=== PATIENT | female | born 1985 | race Two or more races ===

== ENCOUNTER 2022-07-22 13:01 | Emergency (ER) | payer SELFPAY ==
[2022-07-22 13:15] VITALS: BP 128/82; PULSE 94; RESP 20; TEMP 37; O2SAT 100; BMI 25.4
[2022-07-22 13:32] LABS: UTC Influenza A Antigen Negative (Negative); UTC Influenza B Antigen Negative (Negative)
--- NOTE | 2022-07-22 13:36 | EXP.UTC ---
Discharge Plan Disposition Patient Disposition: Home, Self-Care Condition: Good Prescriptions Prescriptions: New prednisone [prednisone] 20 mg tablet 20 mg PO BID 5 Days Qty: 10 0RF amoxicillin-pot clavulanate 875-125 mg Tablet 1 tab PO Q12H Qty: 20 0RF dextromethorphan-guaifenesin [Mucinex DM] 60-1,200 mg tablet extended release 12 hr 1 tab PO BID Qty: 20 0RF Referrals Follow up/Referrals: Provider,Referral, MD [Primary Care Provider] - See instructions Activity Restrictions/Add. Instructions Additional Instructions/Restrictions: Take all medication as prescribed until gone Rest, increase fluids COVID19 test pending Clinical Impressions Clinical Impression: Bronchitis Instructions Patient Instructions: DI for Acute Bronchitis Discharge ED Provider: Negra Tamayo [facility] General Stated complaint: Cough fever Mode of Arrival: Ambulatory Source of Information: Patient Limitations: No Limitations Time Seen by Provider: 07/22/22 13:36 Description of Symptoms (Recalled from Triage Doc. by RN): cough, congestion, fever, and body ache HEENT Symptoms (Recalled from RN notes): Yes Resp Symptoms (Recalled from RN notes): No Skin Symptoms (Recalled from RN notes): No MS Symptoms (Recalled from RN notes): No Functional Status (Recalled from RN notes): n/a History of Present Illness Provider Complaint: Cough, congestion, body aches, fever, tightness in chest X 2 days. Denies ear pain. Mild sinus pain. Mild sore throat. No vomiting or diarrhea. Patient is . Onset (ago): day(s) (2) Location: chest Relieving factors: none Exacerbating factors: none Associated symptoms: denies other symptoms Treatments prior to arrival: none Related Data Previous Rx's Medication Instructions Recorded amoxicillin 875 mg-potassium 1 tab PO Q12H #20 tabs 07/22/22 clavulanate 125 mg tablet dextromethorphan-guaifenesin ER 60 1 tab PO BID #20 tabs 07/22/22 mg-1,200 mg tab,extend release,12hr (Mucinex DM) prednisone 20 mg tablet 20 mg PO BID 5 days #10 tabs 07/22/22 Allergies Allergy/AdvReac Type Severity Reaction Status Date / Time No Known Allergies Allergy Verified 07/22/22 13:24 Worker's Comp Is this a Worker's Comp case?: No PFSH PFSH Disclaimer: The information contained in this section may have been updated after the patient was seen, as this information can be updated by other users. Social History Smoking Status: Never smoker alcohol intake: never current occupational status: unemployed Travel in the last 8 weeks: None ROS Obtained: Yes All systems reviewed & no additional complaints except as documented Constitutional Constitutional: Reports body ache, Reports chills, Reports fever(s) and Reports malaise ENT Ears, Nose, Mouth, and Throat: Reports sinus pain Respiratory Respiratory: Reports chest congestion and Reports cough Physical Exam General General appearance: alert and in no apparent distress Head Head exam: atraumatic, normocephalic and normal inspection Eye Eye exam: Present normal appearance, PERRL and EOMI ENT ENT exam: Present normal exam, normal oropharynx, mucous membranes moist, TM's normal bilaterally and normal external ear exam Neck Neck exam: Present normal inspection, full ROM and trachea midline; Absent meningismus or lymphadenopathy Chest Chest inspection: Present normal inspection and symmetric chest wall rise; Absent tenderness Respiratory Respiratory exam: Present wheezes; Absent respiratory distress Cardiovascular Cardiovascular exam: Present regular rate and normal rhythm; Absent JVD Abdominal Exam Abdominal exam: Present soft and normal bowel sounds; Absent distention, tenderness or guarding Extremities Exam Extremities exam: Present normal inspection, full ROM and normal capillary refill; Absent calf tenderness Back Exam Back exam: Present normal inspection; Absent tenderness Neurological Exam Neurological exam: P
[2022-07-22 14:02] VITALS: BP 128/82; PULSE 94; RESP 20; TEMP 37; O2SAT 100
== END 2022-07-22 14:02 | disposition home or self-care (01) ==
PROVIDERS: Emergency Provider Physician Assistant
DX: U07.1 COVID-19 (principal); R05.9 Cough, unspecified; R50.9 Fever, unspecified; J40 Bronchitis, not specified as acute or chronic
CPT/HCPCS: 87804; 99212; 99213; C9803; G0463; U0003; U0005

== ENCOUNTER 2023-07-13 16:54 | Emergency (ER) | payer SELFPAY ==
--- NOTE | 2023-07-13 17:33 | ED_ITS ---
Discharge Plan Disposition Patient Disposition: Home, Self-Care Condition: Good Prescriptions Prescriptions: New azithromycin [Zithromax] 250 mg tablet 250 mg PO UD DOSE PK Qty: 6 0RF Rx Instructions: Take two (2) tablets today, then one (1) tablet days #2 thru #5 methylprednisolone 4 mg Tablets,Dose Pack 4 mg PO DIRECTED 6 Days Qty: 21 0RF Rx Instructions: Take 1 pack as directed for 6 days No Action prednisone [prednisone] 20 mg tablet 20 mg PO BID 5 Days Qty: 10 0RF amoxicillin-pot clavulanate 875-125 mg Tablet 1 tab PO Q12H Qty: 20 0RF dextromethorphan-guaifenesin [Mucinex DM] 60-1,200 mg tablet extended release 12 hr 1 tab PO BID Qty: 20 0RF Referrals Follow up/Referrals: Provider,Referral, MD [Primary Care Provider] - See instructions Activity Restrictions/Add. Instructions Additional Instructions/Restrictions: Drink plenty of fluids. Take tylenol or ibuprofen for pain or fever. Take the medications as directed. Follow up with your regular doctor. GO TO THE ER FOR ANY WORSENING SYMPTOMS Clinical Impressions Clinical Impression: Sinusitis Instructions Patient Instructions: Sinusitis, DI for Sinusitis Discharge ED Provider: Avila Albarran [facility] [place] General Stated complaint: runny nose,pain in head Time Seen by Provider: 07/13/23 17:33 History of Present Illness Provider Complaint: She states that for the past 10 days she has had sinus congestion, sore throat and a cough. Related Data Previous Rx's Medication Instructions Recorded amoxicillin 875 mg-potassium 1 tab PO Q12H #20 tabs 07/22/22 clavulanate 125 mg tablet dextromethorphan-guaifenesin ER 60 1 tab PO BID #20 tabs 07/22/22 mg-1,200 mg tab,extend release,12hr (Mucinex DM) prednisone 20 mg tablet 20 mg PO BID 5 days #10 tabs 07/22/22 azithromycin 250 mg tablet 250 mg PO UD DOSE PK #6 tabs 07/13/23 (Zithromax) methylprednisolone 4 mg tablets in 4 mg PO DIRECTED 6 days #21 tabs 07/13/23 a dose pack Allergies Allergy/AdvReac Type Severity Reaction Status Date / Time No Known Allergies Allergy Verified 07/22/22 13:24 [facility] Disclaimer: The information contained in this section may have been updated after the patient was seen, as this information can be updated by other users. Social History (Updated 07/22/22 @ 13:45 by MINA Rosen) Smoking Status: Never smoker alcohol intake: never current occupational status: unemployed Travel in the last 8 weeks: None ROS Obtained: Yes All systems reviewed & no additional complaints except as documented Constitutional Constitutional: Reports poor appetite Eyes Eyes: Reports system reviewed and no additional complaints, except as documented ENT Ears, Nose, Mouth, and Throat: Reports as per HPI Cardiovascular Cardiovascular: Reports system reviewed and no additional complaints, except as documented and Denies chest pain Respiratory Respiratory: Denies shortness of breath, Denies chest congestion, Reports cough, Denies stridor and Denies wheezing Gastrointestinal Gastrointestingal: Reports system reviewed and no additional complaints, except as documented; Denies abdominal pain, diarrhea or vomiting Musculoskeletal Musculoskeletal: Reports system reviewed and no additional complaints, except as documented and Denies arthralgias Integumentary/Breasts Skin/Breast: Reports system reviewed and no additional complaints, except as documented and Denies rash Neurologic Neurologic: Denies paresthesias Allergic/Immunologic Allergic/Immunologic: Denies wheezing Physical Exam General General appearance: alert and in no apparent distress Eye Eye exam: Present normal appearance, PERRL and EOMI ENT ENT exam: Present mucous membranes moist and normal external ear exam Expanded ENT Exam External ear exam: Present normal external inspection TM/Canal exam: Bilateral TM: erythema and bulging Nose exam: Absent sinus tenderness Nasal speculum exam: Bilateral: normal Mouth exam: Present normal external inspection; Absent drooling Teeth exam: Present normal inspection Throat exam: Present tonsillar erythema and tonsillomegaly Neck Neck exam: Present normal inspection, full ROM and trachea midline; Absent tenderness, lymphadenopathy or thyromegaly Chest Chest inspection: Present normal inspection and symmetric chest wall rise; Absent tenderness or rash Respiratory Respiratory exam: Present normal lung sounds bilaterally; Absent respiratory distress, wheezes, stridor or accessory muscle use Cardiovascular Cardiovascular exam: Present regular rate, normal rhythm and normal heart sounds Abdominal Exam Abdominal exam: Present soft; Absent distention, tenderness, guarding, rebound or rigidity Extremities Exam Extremities exam: Present normal inspection, full ROM and normal capillary refill; Absent tenderness or calf tenderness Back Exam Back exam: Present normal inspection and full ROM; Absent tenderness Neurological Exam Neurological exam: Present alert and oriented X3 Psychiatric Psychiatric exam: Present normal affect and normal mood Skin Skin exam: Present warm, dry, intact and normal color Lymphatic Lymphatic Findings: no adenopathy Medical Decision Making Medical Records Medical records reviewed: No I reviewed the patient's medical records. Timbo Inquiry Pt receiving controlled substance: No
[2023-07-13 17:43] LABS: UTC Influenza A Antigen Negative (Negative)
[2023-07-13 17:45] VITALS: BP 129/78; PULSE 81; RESP 18; TEMP 36.8; O2SAT 98; BMI 23.8
[2023-07-13 17:45] LABS: UTC Influenza B Antigen Negative (Negative)
[2023-07-13 19:05] VITALS: BP 129/78; PULSE 81; RESP 18; TEMP 36.8; O2SAT 98
== END 2023-07-13 19:05 | disposition home or self-care (01) ==
PROVIDERS: Emergency Provider Nurse Practitioner Family
DX: J01.90 Acute sinusitis, unspecified (principal); R51.9 Headache, unspecified; R05.9 Cough, unspecified; R09.81 Nasal congestion; R07.0 Pain in throat
CPT/HCPCS: 87804; 99212; 99214; G0463

== ENCOUNTER 2024-06-30 07:05 | Emergency (ER) | payer SELFPAY ==
[2024-06-30 07:07] VITALS: BP 140/99; PULSE 78; RESP 16; TEMP 36.6; O2SAT 99; BMI 26.7
[2024-06-30 07:15] VITALS: BP 135/95; PULSE 75; O2SAT 98
--- NOTE | 2024-06-30 07:18 | XR_ITS ---
PROCEDURE INFORMATION: Exam: XR Chest Exam date and time: 06/30/2024 7:16 AM Age: 38 years old Clinical indication: Cough TECHNIQUE: Imaging protocol: Radiologic exam of the chest. Views: 2 views. COMPARISON: No relevant prior studies available. FINDINGS: Lungs: Unremarkable. No consolidation. Pleural spaces: Unremarkable. No pleural effusion. No pneumothorax. Heart/Mediastinum: Unremarkable. No cardiomegaly. Bones/joints: Unremarkable. IMPRESSION: No acute findings.
--- NOTE | 2024-06-30 07:20 | HMH.EDGENADL ---
Discharge Plan Disposition Patient Disposition: Home, Self-Care Prescriptions Prescriptions: New doxycycline hyclate 100 mg capsule 100 mg PO BID 7 Days Qty: 14 0RF [id number] [Bromfed DM] 2-30-10 mg/5 mL syrup 5 ml PO Q6H PRN (Reason: cold symptoms) Qty: 118 0RF No Action azithromycin [Zithromax] 250 mg tablet 250 mg PO UD DOSE PK Qty: 6 0RF Rx Instructions: Take two (2) tablets today, then one (1) tablet days #2 thru #5 methylprednisolone 4 mg Tablets,Dose Pack 4 mg PO DIRECTED 6 Days Qty: 21 0RF Rx Instructions: Take 1 pack as directed for 6 days Referrals Follow up/Referrals: Provider,Referral, MD [Primary Care Provider] - See instructions Activity Restrictions/Add. Instructions Additional Instructions/Restrictions: At this time it was felt you are safe to be discharged home. If new or worsening symptoms please do not hesitate to return the emergency department. Your symptoms may last 1-2 more weeks but hopefully will will be over the next few days. Your flu and COVID swab is pending at time of discharge, it is positive I will have nursing contact you however on her chest x-ray it looks like you have an atypical pneumonia which we are going to treat with antibiotics regardless. Please take your medications as prescribed. Clinical Impressions Clinical Impression: Atypical pneumonia Print Language Print Language: Mohawk Discharge ED Provider: Artem Rodríguez General Adult HPI General Chief complaint: Upper Respiratory Infection Stated complaint: sore throat, cough, fever Time Seen by Provider: 06/30/24 07:10 Mode of Arrival: Ambulatory Source of Information: Patient Limitations: No Limitations Description of Symptoms (Recalled from ER Triage Doc. by RN): pt c/o a sore throat, cough and congestion x3d. History of Present Illness HPI narrative: Patient is a 38-year-old female with no pertinent past medical history presents emergency department for evaluation of multiple complaints. Patient had positive sick contacts at home and has had sore throat, cough, congestion over the last 3 to 5 days. Adequate p.o. intake, no vomiting. No stated abdominal pain or chest pain. She does have some bodyaches. No other acute complaints at this time. Related Data Previous Rx's ?Medication ?Instructions ?Recorded azithromycin 250 mg tablet 250 mg PO UD DOSE PK #6 tabs 07/13/23 (Zithromax) methylprednisolone 4 mg tablets in 4 mg PO DIRECTED 6 days #21 tabs 07/13/23 a dose pack [id number] 5 ml PO Q6H PRN cold symptoms #118 06/30/24 2 mg-30 mg-10 mg/5 mL oral syrup mL (Bromfed DM) doxycycline hyclate 100 mg capsule 100 mg PO BID atypical pneumonia 7 06/30/24 days #14 caps Allergies Allergy/AdvReac Type Severity Reaction Status Date / Time No Known Allergies Allergy Verified 06/30/24 07:15 [facility] Disclaimer: The information contained in this section may have been updated after the patient was seen, as this information can be updated by other users. Social History (Updated 07/22/22 @ 13:45 by MINA Rosen) Smoking Status: Never smoker alcohol intake: never current occupational status: unemployed Travel in the last 8 weeks: None Have you lived/traveled outside [place] in past 30 days?: No Contact w/someone who lives/traveled outside [place] past 30 days?: No Exposure to someone with infectious disease in past 14 days?: No Do you have a fever (greater than 100.4 F or 38 C)?: No Have you tested positive for COVID-19: No Exposed to someone with COVID-19 in past 14 days?: No Do you have a sore throat?: No Do you have a cough?: No Do you have any weakness?: No Do you have any diarrhea?: No Are you experiencing any unusual bleeding?: No Do you have any muscle aches/pain?: No Do you have any abdominal pain?: No Are you experiencing loss of taste or smell?: No ROS Obtained: Yes Systems reviewed as appropriate & no additional complaints except as documented Physical Exam General General appearance: alert and in no apparent distress Head Head exam: atraumatic and normocephalic Eye Eye exam: Present PERRL ENT ENT exam: Present mucous membranes moist; Absent normal oropharynx (Symmetrically enlarged palate teen tonsils, erythematous posterior oropharynx without exudate.) Neck Neck exam: Present normal inspection and full ROM Chest Chest inspection: Present normal inspection and symmetric chest wall rise Respiratory Respiratory exam: Present normal lung sounds bilaterally; Absent respiratory distress, wheezes, stridor or accessory muscle use Cardiovascular Cardiovascular exam: Present regular rate and normal rhythm Abdominal Exam Abdominal exam: Present soft; Absent tenderness Extremities Exam Extremities exam: Present normal inspection Neurological Exam Neurological exam: Present alert Psychiatric Psychiatric exam: Present normal affect Skin Skin exam: Present warm and dry Medical Decision Making Medical Records Screening: Per USPSTF and CDC recommendations, given the prevalence of disease in our region, it is our hospital?s policy to screen for HIV and viral Hepatitis for all patients aged 18 and over and those with ongoing risk factors. Timbo Inquiry Pt receiving controlled substance: No Vital Signs: 06/30/24 07:07 06/30/24 07:15 06/30/24 07:31 Temperature 97.8 F Temperature Source Oral Pulse Rate 75 73 Pulse Rate [Left] 78 Respiratory Rate 16 Blood Pressure 135/95 H 136/100 H Blood Pressure [Right Arm] 140/99 H Blood Pressure Mean 104 112 Blood Pressure Mean [Right Arm] 112 Blood Pressure Source [Right Arm] Automatic Cuff Blood Pressure Position [Right Arm] Sitting 02 Sat by Pulse Oximetry 99 98 96 Oxygen Delivery Method Room Air Room Air Room Air 06/30/24 07:45 Temperature Temperature Source Pulse Rate 74 Pulse Rate [Left] Respiratory Rate Blood Pressure 119/96 H Blood Pressure [Right Arm] Blood Pressure Mean 103 Blood Pressure Mean [Right Arm] Blood Pressure Source [Right Arm] Blood Pressure Position [Right Arm] 02 Sat by Pulse Oximetry 97 Oxygen Delivery Method Room Air Lab Data Lab Results 06/30/24 07:19: Group A Strep Rapid Negative Orders (Tests/Meds): ED MEDICATIONS Discontinued Medications Generic Name Dose Route Start Last Admin Trade Name Freq PRN Reason Stop Dose Admin Acetaminophen 1,000 mg 06/30/24 07:19 Acetaminophen 500mg Tab PO 06/30/24 07:20 ONCE ONE Ibuprofen 600 mg 06/30/24 07:19 Ibuprofen 600 Mg Tablet PO 06/30/24 07:20 ONCE ONE ORDERS Category Date Time Status CXR 2 view (NOT portable) [XR chest 2V] Stat Exams 06/30/24 07:18 Taken Rapid PCR Covid and Flu A/B Stat Lab 06/30/24 07:19 Received Rapid Strep Scrn Group A [Strep Scrn Group A (Rapid)] Lab 06/30/24 07:19 Completed Stat Strep Screen Confirmation Stat Micro 06/30/24 07:19 Received Medical Decision Narrative: In summary patient is a 38-year-old female past medical history described above who presents emergency department for evaluation of cough, congestion, sore throat. Patient is hemodynamically stable and nontoxic-appearing upon arrival, afebrile. Differential includes viral syndrome, strep pharyngitis, influenza, pneumonia, among others. Workup will be conducted with two-view chest x-ray, viral swab, strep swab. Initial inventions include Tylenol and ibuprofen. Hematologic labs were considered as well as more advanced diagnostic imaging of the chest however based on history and physical exam will be deferred at this time. Initial workup reviewed by me, strep swab negative. Chest x-ray informally interpreted by me and consistent with interstitial opacities likely tax compliance representative of atypical pneumonia. Upon repeat evaluation patient continues saturate in the high 90s on room air and is appropriate for outpatient management at this time. Flu and COVID pending at time of discharge however given my suspicion for atypical pneumonia on x-ray will treat with doxycycline regardless. Patient was given return precautions. Critical Care Critical Care Time Critical Care Time: No
[2024-06-30 07:30] LABS: Coronavirus 19, PCR Not Detected (NotDetected); Influenza A, PCR Not Detected (NotDetected); Influenza B, PCR Not Detected (NotDetected)
[2024-06-30 07:31] VITALS: BP 136/100; PULSE 73; O2SAT 96
[2024-06-30 07:43] LABS: Strep Scrn Group A (Rapid) Negative (Negative)
[2024-06-30 07:45] VITALS: BP 119/96; PULSE 74; O2SAT 97
[2024-06-30] MEDS: IBUPROFEN 600 MG TABLET PO (07:51)
[2024-06-30] MEDS: ACETAMINOPHEN 500MG TAB 1000 MG PO (07:51)
[2024-06-30 07:58] VITALS: BP 119/96; PULSE 74; RESP 15; TEMP 36.6
== END 2024-06-30 08:00 | disposition home or self-care (01) ==
PROVIDERS: Emergency Provider Emergency Medicine
DX: J18.9 Pneumonia, unspecified organism (principal); R05.9 Cough, unspecified; R09.81 Nasal congestion; J02.9 Acute pharyngitis, unspecified; R50.9 Fever, unspecified; M79.10 Myalgia, unspecified site
CPT/HCPCS: 71046; 87430; 87636; 99283